=== PATIENT | male | born 1990 | race African-American/Black ===

== ENCOUNTER → 2017-03-02 | Outpatient (CLI) | payer SELFPAY ==
[~2017-03-02] MED LIST: AMOXICILLIN500 MG PO; ATIVAN0.5 MG PO; ATIVAN1 MG PO; BACTRIM DS 8001 TA1 PO; CARDIZEM CD120 M2 PO; CARDIZEM LA120 MG PO; CARDIZEM120 MG PO; CLARITIN10 MG PO; COREG3.125 MG PO; FLONASE 0.05% 121 EA NAS; HYDR25T PO; HYDROCHLOROTHIA25 MG PO; HYDROCODONE BIT1 T11 PO; INDERAL LA120 MG PO; INDERAL XL80 MG PO; LISINOPRIL HCTZ1 TA1 PO; LORAZEPAM0.5 MG PO; MOTRIN800 MG PO; NAPROSYN500 MG PO; PROPRANOLOL; PROPRANOLOL ER80 MG PO; PROPRANOLOL HCL20 MG PO; ROBITUSSIN DM120 ML PO; SERTRALINE HYDR50 MG PO; TRIMOX500 MG PO; TYLENOL W/CODEI1 TA2 PO; ULTRAM50 MG PO; ZESTRIL,PRINIVI20 MG PO; ZITHROMAX Z PA250 MG PO; ZOLOFT100 MG PO; ZOLOFT50 MG PO; ZYRTEC10 M1 PO; ZYRTEC10 MG PO; [UNRECOGNIZED DRUG - OTHER] PO
== END | disposition home or self-care (01) ==
LOC: RESCLI 02:02
DX: I10 Essential (primary) hypertension (principal); F41.9 Anxiety disorder, unspecified; E66.01 Morbid (severe) obesity due to excess calories; Z72.0 Tobacco use

== ENCOUNTER 2017-04-27 22:22 | Emergency (ER) | payer OTHER ==
[~2017-04-27] VITALS: Ht 195.5 cm; Wt 145.1 kg
[2017-04-27] MEDS ORDERED: ZOLOFT50 MG PO (22:30)
[2017-04-27] MEDS ORDERED: LISINOPRIL AND1 TA2 PO (22:30)
[2017-04-27] MEDS ORDERED: AMOXICILLIN500 M2 PO (23:07)
== END 2017-04-27 23:27 | disposition home or self-care (01) ==
LOC: ED 22:22
DX: K08.89 Other specified disorders of teeth and supporting structures (principal); R51 Headache; F17.200 Nicotine dependence, unspecified, uncomplicated

== ENCOUNTER 2017-04-28 17:21 | Emergency (ER) | payer OTHER ==
[~2017-04-28] VITALS: Ht 195.5 cm; Wt 145.1 kg
[~2017-04-28 17:21] MED LIST changes: +AMOXICILLIN500 M2 PO; +LISINOPRIL AND1 TA2 PO
== END 2017-04-28 19:48 | disposition home or self-care (01) ==
LOC: ED 17:21
DX: K08.89 Other specified disorders of teeth and supporting structures (principal); Z79.899 Other long term (current) drug therapy

== ENCOUNTER 2017-05-10 14:41 | Emergency (ER) | payer OTHER ==
[~2017-05-10] VITALS: Wt 145.1 kg
[2017-05-10] MEDS ORDERED: CLINDAMYCIN HC300 MG PO (15:09)
[2017-05-10] MEDS ORDERED: ANAPROX DS550 MG PO (15:09)
[2017-05-10] MEDS ORDERED: LISINOPRIL AND1 TA2 PO (15:22)
== END 2017-05-10 15:18 | disposition home or self-care (01) ==
LOC: ED 14:41
DX: K08.89 Other specified disorders of teeth and supporting structures (principal); Z79.899 Other long term (current) drug therapy

== ENCOUNTER 2017-05-16 18:33 | Emergency (ER) | payer OTHER ==
[~2017-05-16] VITALS: Ht 195.5 cm; Wt 145.1 kg
[~2017-05-16 18:33] MED LIST changes: +ANAPROX DS550 MG PO; +CLINDAMYCIN HC300 MG PO
[2017-05-16] MEDS ORDERED: LISINOPRIL AND1 TA2 PO (18:51)
== END 2017-05-16 18:54 | disposition home or self-care (01) ==
LOC: ED 18:33
DX: Z76.0 Encounter for issue of repeat prescription (principal); Z79.899 Other long term (current) drug therapy

== ENCOUNTER → 2017-07-06 | Outpatient (CLI) | payer OTHER | END | disposition home or self-care (01) | LOC: RESCLI 01:51 | DX: I10 Essential (primary) hypertension (principal); F32.9 Major depressive disorder, single episode, unspecified; F41.9 Anxiety disorder, unspecified ==

== ENCOUNTER 2017-10-16 17:22 | Emergency (ER) | payer OTHER ==
[~2017-10-16] VITALS: Ht 195.5 cm; Wt 133.8 kg
[2017-10-16] MEDS ORDERED: NAPROSYN500 MG PO (17:35)
[2017-10-16] MEDS ORDERED: CLINDAMYCIN150 MG PO (17:35)
== END 2017-10-16 17:35 | disposition home or self-care (01) ==
LOC: ED 17:22
DX: S61.431A Puncture wound without foreign body of right hand, initial encounter (principal); F41.9 Anxiety disorder, unspecified; I10 Essential (primary) hypertension; F10.10 Alcohol abuse, uncomplicated; Z79.899 Other long term (current) drug therapy; W22.8XXA Striking against or struck by other objects, initial encounter; Y93.89 Activity, other specified; Y92.89 Other specified places as the place of occurrence of the external cause; Y99.8 Other external cause status

== ENCOUNTER 2018-10-14 19:13 | Emergency (ER) | payer OTHER ==
[~2018-10-14] VITALS: Ht 195.5 cm; Wt 145.1 kg
[~2018-10-14 19:13] MED LIST changes: +CLINDAMYCIN150 MG PO; +CLONIDINE HCL0.1 MG PO; +SERTRALINE HYD100 MG PO; +XANAX0.5 MG PO
[2018-10-14] MEDS ORDERED: FLONASE ALLERG9.9 ML NAS (19:23)
[2018-10-14] MEDS ORDERED: CLARITIN10 MG PO (19:23)
[2018-10-14] MEDS ORDERED: PREDNISONE10 MG PO (19:23)
== END 2018-10-14 20:05 | disposition home or self-care (01) ==
LOC: ED 19:13
DX: B34.9 Viral infection, unspecified (principal); I10 Essential (primary) hypertension; R06.02 Shortness of breath; Z79.899 Other long term (current) drug therapy

== ENCOUNTER 2019-01-12 15:33 | Emergency (ER) | payer OTHER ==
[~2019-01-12] VITALS: Ht 195.5 cm; Wt 136.1 kg
--- NOTE | ~2019-01-12 | EKG ---
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
[~2019-01-12 15:33] MED LIST changes: +FLONASE ALLERG9.9 ML NAS; +PREDNISONE10 MG PO
[2019-01-12 16:01] LABS: BASO # 0.1 10*3/uL (0.0-0.1); BASO % 0.9 % (0.0-1.0); EOS # 0.4 10*3/uL (0.0-0.4); EOS % 6.7 % (1.0-4.0); HEMATOCRIT 44.9 % (42.0-52.0); HEMOGLOBIN 14.2 g/dl (14.0-18.0); LYMPH % 36.6 % (27.0-41.0); MEAN CELL VOLUME 81.6 fl (80.0-94.0); MEAN CORPUSCULAR HGB 25.8 pg (27.0-31.0); MEAN CORPUSCULAR HGB CONC 31.6 g/dl (33.0-37.0); MEAN PLATELET VOLUME 9.8 fl (9.6-12.3); MONO # 0.3 10*3/uL (0.1-1.0); MONO % 6.1 % (3.0-9.0); NEUT # 2.8 10*3/uL (2.3-7.9); NEUT % 49.5 % (47.0-73.0); PLATELET COUNT AUTOMATED 246 10*3/uL (130-400); RED CELL DISTRI WIDTH 15.9 % (0-14.5); WHITE BLOOD COUNT 5.6 10*3/uL (4.8-10.8)
[2019-01-12 16:28] LABS: ALBUMIN 3.8 gm/dl (3.1-4.5); ALKALINE PHOSPHATASE 99 U/L (45-117); BUN 13 mg/dl (7-24); CHLORIDE 103 mmol/L (98-107); CREATININE 1.15 mg/dL (0.70-1.30); POTASSIUM 3.9 mmol/L (3.5-5.1); SGOT/AST 15 IU/L (3-35); SGPT/ALT 30 U/L (12-78); SODIUM 136 mmol/L (136-145); TOTAL PROTEIN 7.6 gm/dL (6.4-8.2)
[2019-01-12 16:29] LABS: TROPONIN I < 0.015 ng/ml (<0.045)
[2019-01-12 16:34] LABS: THYROID STIM HORMONE (HS) 0.411 uIU/ml (0.358-4.75)
== END 2019-01-12 17:08 | disposition home or self-care (01) ==
LOC: ED 15:33
PROVIDERS: Internal Medicine
DX: F41.0 Panic disorder [episodic paroxysmal anxiety] (principal); R05 Cough; I10 Essential (primary) hypertension; Z79.899 Other long term (current) drug therapy

== ENCOUNTER 2019-02-08 18:36 | Emergency (ER) | payer OTHER ==
[~2019-02-08] VITALS: Ht 195.5 cm; Wt 137.4 kg
--- NOTE | ~2019-02-08 | EKG ---
[place], [place] ELECTROCARDIOGRAM REPORT NAME: BRAD MCGREGOR UNIT #: [id number] ROOM: DOCTOR: [facility] DRAFT REPORT BIRTHDATE: [birth year] [facility] Test Date: 2019-02-08 Test Time: 19:42:22 Pat Name: BRAD MCGREGOR Department: ER Room: 2 Gender: M Medical Dir: EKG.ND : 1990 Requested By: SHANNAN TORRE Order Number: [id number] Reading MD: Rahul Neal MD Measurements Intervals [place] Rate: 89 P: 40 OK: 202 QRS: 49 QRSD: 107 T: 23 QT: 344 QTc: 419 Interpretive Statements Sinus rhythm Borderline prolonged OK interval Probable left atrial enlargement RSR' in V1 or V2, probably normal variant ST elev, probable normal early repol pattern Baseline wander in lead(s) II,III,aVF,V1 Compared to ECG 01/12/2019 15:58:19 RSR' in V1 or V2 now present ST (T wave) deviation still present Electronically Signed On 02-10-2019 11:28:48 PDT by Rahul Neal MD CM:EKGRPT:ELECTROCARDIOGRAM REPORT [id number] SHANNAN NIETO DRAFT REPORT SHANNAN TORRE DO
[2019-02-08 19:48] LABS: BASO % 0.4 % (0.0-1.0); EOS # 0.2 10*3/uL (0.0-0.4); EOS % 2.9 % (1.0-4.0); HEMATOCRIT 42.1 % (42.0-52.0); HEMOGLOBIN 13.7 g/dl (14.0-18.0); LYMPH # 2.5 10*3/uL (1.3-4.4); LYMPH % 30.9 % (27.0-41.0); MEAN CELL VOLUME 79.9 fl (80.0-94.0); MEAN CORPUSCULAR HGB CONC 32.5 g/dl (33.0-37.0); MEAN PLATELET VOLUME 9.6 fl (9.6-12.3); MONO # 0.5 10*3/uL (0.1-1.0); MONO % 5.9 % (3.0-9.0); NEUT # 4.8 10*3/uL (2.3-7.9); NEUT % 59.6 % (47.0-73.0); PLATELET COUNT AUTOMATED 260 10*3/uL (130-400); RED BLOOD COUNT 5.27 10*6/uL (4.50-5.90)
[2019-02-08 20:18] LABS: ALBUMIN 3.6 gm/dl (3.1-4.5); ALKALINE PHOSPHATASE 78 U/L (45-117); BUN 11 mg/dl (7-24); CHLORIDE 106 mmol/L (98-107); POTASSIUM 3.6 mmol/L (3.5-5.1); SGOT/AST 10 IU/L (3-35); SGPT/ALT 22 U/L (12-78); SODIUM 139 mmol/L (136-145); TOTAL PROTEIN 7.5 gm/dL (6.4-8.2); TROPONIN I < 0.015 ng/ml (<0.045)
== END 2019-02-08 20:29 | disposition home or self-care (01) ==
LOC: ED 18:36
PROVIDERS: Student in an Organized Health Care Education/Training Program
DX: J45.909 Unspecified asthma, uncomplicated (principal); Z79.899 Other long term (current) drug therapy

== ENCOUNTER 2019-08-19 14:26 | Emergency (ER) | payer SELFPAY ==
[~2019-08-19] VITALS: Wt 147.4 kg
[2019-08-19 15:22] LABS: BILIRUBIN NEGATIVE (NEGATIVE); BLOOD NEGATIVE (NEGATIVE); CLARITY SL CLOUDY (CLEAR); COLOR YELLOW (YELLOW); GLUCOSE NEGATIVE (NEGATIVE); KETONE NEGATIVE (NEGATIVE); LEUKO ESTERASE TRACE (NEGATIVE); NITRITE NEGATIVE (NEGATIVE)
[2019-08-19 15:35] LABS: BACTERIA TRACE
[2019-08-19] MEDS ORDERED: IBU800 MG PO (15:57)
== END 2019-08-19 16:02 | disposition home or self-care (01) ==
LOC: ED 14:26
PROVIDERS: Nurse Practitioner Family
DX: S39.012A Strain of muscle, fascia and tendon of lower back, initial encounter (principal); Z79.899 Other long term (current) drug therapy; X58.XXXA Exposure to other specified factors, initial encounter; Y93.89 Activity, other specified; Y92.89 Other specified places as the place of occurrence of the external cause; Y99.8 Other external cause status

== ENCOUNTER 2020-11-03 23:34 | Emergency (ER) | payer OTHER ==
[~2020-11-03] VITALS: Ht 195.5 cm; Wt 139.7 kg
[~2020-11-03 23:34] MED LIST changes: +IBU800 MG PO
[2020-11-03] MEDS ORDERED: ABILIFY20 MG PO (23:52)
[2020-11-03] MEDS ORDERED: HALDOL5 MG PO (23:52)
[2020-11-03] MEDS ORDERED: DOXEPIN HCL100 MG PO (23:53)
[2020-11-04 00:29] LABS: BASO % 0.2 % (0.0-1.0); EOS # 0.1 10*3/uL (0.0-0.4); EOS % 1.2 % (1.0-4.0); HEMATOCRIT 41.1 % (42.0-52.0); LYMPH # 1.9 10*3/uL (1.3-4.4); LYMPH % 22.3 % (27.0-41.0); MEAN CELL VOLUME 80.6 fl (80.0-94.0); MEAN CORPUSCULAR HGB 25.1 pg (27.0-31.0); MEAN CORPUSCULAR HGB CONC 31.1 g/dl (33.0-37.0); MEAN PLATELET VOLUME 9.5 fl (9.6-12.3); MONO # 0.7 10*3/uL (0.1-1.0); MONO % 8.3 % (3.0-9.0); NEUT # 5.6 10*3/uL (2.3-7.9); NEUT % 67.8 % (47.0-73.0); PLATELET COUNT AUTOMATED 269 10*3/uL (130-400); RED CELL DISTRI WIDTH 14.8 % (0-14.5); WHITE BLOOD COUNT 8.3 10*3/uL (4.8-10.8)
[2020-11-04 00:45] LABS: ALBUMIN 3.4 gm/dl (3.1-4.5); ALKALINE PHOSPHATASE 82 U/L (45-117); BUN 13 mg/dl (7-24); CHLORIDE 100 mmol/L (98-107); CREATININE 1.07 mg/dL (0.70-1.30); POTASSIUM 3.9 mmol/L (3.5-5.1); SGOT/AST 14 IU/L (3-35); SGPT/ALT 15 U/L (12-78); SODIUM 139 mmol/L (136-145); TOTAL PROTEIN 7.6 gm/dL (6.4-8.2)
[2020-11-04 01:33] LABS: BILIRUBIN 1+ (Negative); BLOOD Negative (Negative); CLARITY Clear (Clear); COLOR Dark Yellow (Yellow); GLUCOSE Negative (Negative); KETONE Trace (Negative); LEUKO ESTERASE 3+ (Negative); NITRITE Negative (Negative); PH 6.5 (4.5-8.0); SPECIFIC GRAVITY 1.025 (1.001-1.030); UROBILINOGEN >= 8.0 E.U./dl (0.0-1.0)
[2020-11-04 01:52] LABS: WBC 31-40 wbc/hpf (0-5)
[2020-11-04] MEDS ORDERED: VIBRAMYCIN100 MG PO (10:04)
[2020-11-04] MEDS ORDERED: TYLENOL325 M1 PO (10:04)
[2020-11-04] MEDS ORDERED: NAPROSYN500 MG PO (10:04)
== END 2020-11-04 10:21 | disposition home or self-care (01) ==
LOC: ED 23:34
PROVIDERS: Nurse Practitioner Family
DX: N45.1 Epididymitis (principal); Z79.899 Other long term (current) drug therapy

== ENCOUNTER 2022-03-15 22:50 | Emergency (ER) | payer OTHER ==
[~2022-03-15] VITALS: Ht 195.5 cm; Wt 129.7 kg
[~2022-03-15 22:50] MED LIST changes: +ABILIFY20 MG PO; +DOXEPIN HCL100 MG PO; +HALDOL5 MG PO; +TYLENOL325 M1 PO; +VIBRAMYCIN100 MG PO
== END 2022-03-16 00:18 | disposition home or self-care (01) ==
LOC: ED 22:50
DX: F41.9 Anxiety disorder, unspecified (principal); Z79.899 Other long term (current) drug therapy

== ENCOUNTER → 2022-06-19 | Outpatient (CLI) | payer OTHER | END | disposition home or self-care (01) | LOC: RESCLI 16:10 | PROVIDERS: ATTEND Emergency Medicine | DX: I10 Essential (primary) hypertension (principal); F41.9 Anxiety disorder, unspecified; F32.9 Major depressive disorder, single episode, unspecified; R53.83 Other fatigue; E55.9 Vitamin D deficiency, unspecified; Z71.6 Tobacco abuse counseling; Z72.0 Tobacco use; Z79.899 Other long term (current) drug therapy ==

== ENCOUNTER 2022-11-11 18:31 | Emergency (ER) | payer OTHER ==
[~2022-11-11] VITALS: Wt 140.6 kg
== END 2022-11-11 23:04 | disposition left against medical advice (07) ==
LOC: ED 18:31
DX: F41.9 Anxiety disorder, unspecified (principal); Z53.21 Procedure and treatment not carried out due to patient leaving prior to being seen by health care provider

== ENCOUNTER 2025-06-03 18:02 | Emergency (ER) | payer OTHER ==
[~2025-06-03] VITALS: Ht 195.5 cm; Wt 117.9 kg
[2025-06-03] MEDS ORDERED: LISINOPRIL-HCT1 EACH PO (18:24)
[2025-06-03] MEDS ORDERED: hydroCHLOROthiazide 25 MG TAB PO ONE (18:25)
[2025-06-03] MEDS ORDERED: LISINOPRIL 20 MG TAB PO ONE (18:25)
== END 2025-06-03 18:54 | disposition home or self-care (01) ==
LOC: ED 18:02
DX: I10 Essential (primary) hypertension (principal); F41.9 Anxiety disorder, unspecified; Z79.899 Other long term (current) drug therapy

== ENCOUNTER 2025-08-01 21:10 | Emergency (ER) | payer SELFPAY ==
[~2025-08-01] VITALS: Ht 195.5 cm; Wt 108.6 kg
[~2025-08-01 21:10] MED LIST changes: +LISINOPRIL-HCT1 EACH PO
[2025-08-01] MEDS ORDERED: BUSPIRONE HCL30 MG PO (21:28)
[2025-08-01] MEDS ORDERED: HALOPERIDOL2 M1 PO (21:29)
[2025-08-01] MEDS ORDERED: DIAZEPAM2 MG PO (21:29)
[2025-08-01] MEDS ORDERED: ZESTORETIC 20-1 EACH PO (21:29)
[2025-08-01] MEDS ORDERED: LORazepam 1 MG TAB PO ONE ×2 (22:20→22:45)
[2025-08-02] MEDS ORDERED: VISTARIL25 MG PO (00:27)
== END 2025-08-02 00:34 | disposition home or self-care (01) ==
LOC: ED 21:10
DX: F41.1 Generalized anxiety disorder (principal); I10 Essential (primary) hypertension; J45.909 Unspecified asthma, uncomplicated

== ENCOUNTER 2025-08-07 07:30 | Emergency (ER) | payer SELFPAY ==
[~2025-08-07] VITALS: Ht 195.5 cm; Wt 108.9 kg
[~2025-08-07 07:30] MED LIST changes: +BUSPIRONE HCL30 MG PO; +DIAZEPAM2 MG PO; +HALOPERIDOL2 M1 PO; +VISTARIL25 MG PO; +ZESTORETIC 20-1 EACH PO
[2025-08-07] MEDS ORDERED: SODIUM CHLORIDE 0.9% 500 ML IV ONE (07:40)
[2025-08-07] MEDS ORDERED: diazePAM 5 MG TAB PO ONE (07:40)
[2025-08-07] MEDS ORDERED: Ondansetron Hydrochloride 4 MG/2 ML VIAL IV ONE (07:40)
[2025-08-07 07:52] LABS: BASO # 0.0 10*3/uL (0.0-0.1); BASO % 0.7 % (0.0-1.0); EOS # 0.1 10*3/uL (0.0-0.4); EOS % 1.0 % (1.0-4.0); MEAN CELL VOLUME 82.3 fl (80.0-94.0); MEAN CORPUSCULAR HGB 25.8 pg (27.0-31.0); MEAN PLATELET VOLUME 9.4 fl (9.6-12.3); MONO # 0.4 10*3/uL (0.1-1.0); MONO % 6.6 % (3.0-9.0); NEUT # 3.2 10*3/uL (2.3-7.9); NEUT % 55.5 % (47.0-73.0); NUCLEATED RED BLOOD CELL 0.0 % (0.0-0.0); NUCLEATED RED BLOOD CELL 0.0 10*3/uL (0.0-0.0); PLATELET COUNT AUTOMATED 241 10*3/uL (130-400); RED CELL DISTRI WIDTH 14.8 % (0-14.5)
[2025-08-07 08:12] LABS: BUN 10 mg/dl (9-23)
[2025-08-07 09:09] LABS: BILIRUBIN Negative (Negative); BLOOD Negative (Negative); CLARITY Clear (Clear); COLOR Yellow (Yellow); KETONE Negative (Negative); LEUKO ESTERASE Negative (Negative); NITRITE Negative (Negative); PH 5.5 (4.5-8.0); SPECIFIC GRAVITY 1.015 (1.001-1.030); UROBILINOGEN 1.0 E.U./dl (0.0-1.0)
[2025-08-07 09:17] LABS: BACTERIA 1+; MUCOUS 2+; RBC 0-2 rbc/hpf (0-2)
[2025-08-07] MEDS ORDERED: VISTARIL25 MG PO (10:09)
[2025-08-07] MEDS ORDERED: METHOCARBAMOL750 M1 PO (10:09)
[2025-08-07] MEDS ORDERED: Ondansetron4 MG PO (10:32)
[2025-08-07] MEDS ORDERED: Ondansetron Hydrochloride 4 MG TAB PO ONE (10:35)
[2025-08-07] MEDS ORDERED: cloNIDine 0.1 MG PATCH T SCH (10:35)
== END 2025-08-07 10:13 | disposition home or self-care (01) ==
LOC: ED 07:30
PROVIDERS: Emergency Medicine
DX: S39.011A Strain of muscle, fascia and tendon of abdomen, initial encounter (principal); F41.9 Anxiety disorder, unspecified; I10 Essential (primary) hypertension; X58.XXXA Exposure to other specified factors, initial encounter; Y93.89 Activity, other specified; Y92.89 Other specified places as the place of occurrence of the external cause; Y99.8 Other external cause status

== ENCOUNTER 2025-10-07 10:34 | Emergency (ER) | payer SELFPAY ==
[~2025-10-07] VITALS: Ht 195.5 cm; Wt 105.3 kg
[~2025-10-07 10:34] MED LIST changes: +METHOCARBAMOL750 M1 PO; +Ondansetron4 MG PO
[2025-10-07] MEDS ORDERED: LORazepam 1 MG TAB PO ONE (11:20)
[2025-10-07 11:29] LABS: BASO # 0.0 10*3/uL (0.0-0.1); BASO % 0.5 % (0.0-1.0); EOS # 0.1 10*3/uL (0.0-0.4); EOS % 1.7 % (1.0-4.0); MEAN CELL VOLUME 83.6 fl (80.0-94.0); MEAN CORPUSCULAR HGB 26.5 pg (27.0-31.0); MEAN PLATELET VOLUME 9.5 fl (9.6-12.3); MONO # 0.3 10*3/uL (0.1-1.0); MONO % 6.5 % (3.0-9.0); NEUT # 2.5 10*3/uL (2.3-7.9); NEUT % 61.2 % (47.0-73.0); NUCLEATED RED BLOOD CELL 0.0 % (0.0-0.0); NUCLEATED RED BLOOD CELL 0.0 10*3/uL (0.0-0.0); PLATELET COUNT AUTOMATED 215 10*3/uL (130-400); RED CELL DISTRI WIDTH 15.0 % (0-14.5)
[2025-10-07 11:50] LABS: BUN 8 mg/dl (9-23)
[2025-10-07] MEDS ORDERED: diazePAM 10 MG/2 ML SYR IV ONE (12:05)
== END 2025-10-07 13:58 | disposition home or self-care (01) ==
LOC: ED 10:34
PROVIDERS: Nurse Practitioner Family
DX: F41.9 Anxiety disorder, unspecified (principal); I10 Essential (primary) hypertension